=== PATIENT | male | born 1980 | race Caucasian/White ===

== ENCOUNTER 2019-09-11 12:52 | Emergency (ER) | payer OTHER, BC ==
[~2019-09-11] VITALS: Ht 190.5 cm; Wt 131.5 kg
[2019-09-11] MEDS ORDERED: ESOM20 PO (13:05)
[2019-09-11] MEDS ORDERED: LOSA25 PO (13:06)
[2019-09-11] MEDS ORDERED: TESTOSTERONE (13:06)
[2019-09-11] MEDS ORDERED: Norco 5-325 Ta1 EACH PO (14:02)
[2019-09-11] MEDS ORDERED: Valium5 MG PO (14:02)
== END 2019-09-11 14:35 | disposition home or self-care (01) ==
LOC: ER 12:52
DX: M54.6 Pain in thoracic spine (principal); I10 Essential (primary) hypertension; K21.9 Gastro-esophageal reflux disease without esophagitis; Z79.899 Other long term (current) drug therapy
CPT/HCPCS: 96374; 96375; 99283-25; J1170; J1885; J2930; J3360